=== PATIENT | male | born 1995 | race Caucasian/White ===

== ENCOUNTER 2017-10-20 10:14 | Outpatient (CLI) | payer OTHER ==
--- NOTE | 2017-10-20 11:37 | RAD ---
LEFT FOOT THREE VIEWS: History: Pain in the fourth and fifth digit due to basketball injury. Comparison: None. FINDINGS: Lisfranc alignment is maintained. There is an oblique nondisplaced fracture involving the proximal ph alanx of the fourth digit. There is also irregularity involving the distal aspect of the proximal pha lanx of the second digit. Irregularity involves the articular surface at the level of the proximal in terphalangeal joint space. IMPRESSION: 1. Fourth digit fracture as above. 2. Probable second digit fracture as above. The second digit fracture appears to have intraarticular extension. Code T POS: [facility]
== END 2017-10-20 10:15 | disposition home or self-care (01) ==
LOC: SCSRAD 10:14
PROVIDERS: ATTEND Family Medicine
DX: M79.675 Pain in left toe(s) (principal); S92.515A Nondisplaced fracture of proximal phalanx of left lesser toe(s), initial encounter for closed fracture